=== PATIENT | male | born 1975 | race Caucasian/White ===

== ENCOUNTER 2017-01-24 13:34 | Emergency (ER) | payer OTHER, BC, MEDICAID ==
[2017-01-24 13:58] VITALS: BP 155/95
--- NOTE | 2017-01-24 14:09 | EDM.PDOC ---
ED HPI GENERAL MEDICAL PROBLEM - General Chief Complaint: Burn Stated Complaint: Left foot burn Time Seen by Provider: 01/24/17 13:55 Source of Information: Reports: Patient, RN Notes Reviewed History Limitations: Reports: No Limitations - History of Present Illness INITIAL COMMENTS - FREE TEXT/NARRATIVE: 41 year old male presents to the ED with complaints of burn to his left foot while at work. He dropped hot, boiling water onto his left foot. He was wearing a tennis shoe but the water soaked through. He has redness to all 5 toes. No blistering. No additional injury. Left Feet Pain Score (Numeric/FACES): 5 - Related Data Allergies Allergy/AdvReac Type Severity Reaction Status Date / Time No Known Allergies Allergy Verified 01/24/17 14:54 Home Meds: Home Meds . [No Known Home Meds] 01/24/17 [History] Review of Systems - Review of Systems Review Of Systems: See Below Constitutional: Reports: No Symptoms. Denies: Chills, Fever Skin: Reports: Burn(s) Neurological: Reports: No Symptoms. Denies: Numbness, Tingling ED EXAM, GENERAL - Physical Exam Exam: See Below Exam Limited By: No Limitations General Appearance: Alert, WD/WN, No Apparent Distress Respiratory/Chest: No Respiratory Distress, Lungs Clear Cardiovascular: Regular Rate, Rhythm Extremities: Normal Inspection, Normal Range of Motion, Non-Tender Skin Exam: Warm, Dry, Intact, Other (mild erythema to all 5 toes on the left foot. no blistering noted. CMS intact. Skin blanches. ) Course - Vital Signs Last Recorded V/S: Last Vital Signs Temp 98.1 F 01/24/17 13:55 Pulse 87 01/24/17 13:55 Resp 18 01/24/17 13:55 BP 155/95 H 01/24/17 13:55 Pulse Ox 96 01/24/17 13:55 Departure - Departure Time of Disposition: 14:08 Disposition: Home, Self-Care 01 Condition: Good Clinical Impression: Superficial burn of left foot - Discharge Information Instructions: Burn Care, [id number] Forms: ED Department Discharge Additional Instructions: Moist, cool compresses Antibiotic ointment to burn 2-3 times a day Tylenol or Ibuprofen as needed for pain Follow-up in clinic if you have any blistering or worsening symptoms.
== END 2017-01-24 15:02 | disposition home or self-care (01) ==
LOC: JD.ED 13:34
DX: T25.132A Burn of first degree of left toe(s) (nail), initial encounter (principal)
CPT/HCPCS: 99282; 99283

== ENCOUNTER 2017-12-06 13:30 | Emergency (ER) | payer BC, MEDICAID ==
[2017-12-06] MEDS ORDERED: Alum Hydrox/Mag Hydrox/Simeth 30 ML, Lidocaine 2% 15 ML PO STA ×2 (13:54)
--- NOTE | 2017-12-06 13:57 | EDM.PDOC ---
ED HPI GENERAL MEDICAL PROBLEM - General Chief Complaint: Chest Pain Stated Complaint: CHEST PAIN Time Seen by Provider: 12/06/17 13:39 Source of Information: Reports: Patient History Limitations: Reports: No Limitations - History of Present Illness INITIAL COMMENTS - FREE TEXT/NARRATIVE: The patient states that he developed central chest and epigastric abdominal pain Satnes evening, 12/04/2017. It is a twisting pain, not a discomfort. It does not radiate. It waxes and wanes. It becomes worse a few moments after taking a deep breath. He reports slight dyspnea, questionable nausea, diaphoresis today, but no sense of impending doom. It is similar to when he has trouble swallowing something. He has not tried any home remedies or over-the- counter medicines. The patient acknowledges that he is a daily drinker, drinking to excess 3 days a week. The patient does not have a PCP. - Related Data Allergies Allergy/AdvReac Type Severity Reaction Status Date / Time No Known Allergies Allergy Verified 01/24/17 14:54 Home Meds: Home Meds . [No Known Home Meds] 01/24/17 [History] Past Medical History Respiratory History: Reports: Asthma (as a child - suspected, not confirmed) - Infectious Disease History Infectious Disease History: Reports: Chicken Pox Social & Family History - Tobacco Use Smoking Status *Q: Former Smoker Tobacco Use Within Last Twelve Months: Cigars Packs/Tins Daily: 1 Month/Year Tobacco Last Used: Quit 1999 - Caffeine Use Caffeine Use: Reports: Coffee - Alcohol Use Alcohol Use History: Yes Days Per Week of Alcohol Use: 7 Number of Drinks Per Day: 4 Total Drinks Per Week: 28 Alcohol Use Frequency: Binges (Drinks excessively 3 days a week), Daily - Recreational Drug Use Recreational Drug Use: Yes Drug Use in Last 12 Months: No Recreational Drug Type: Reports: Marijuana/Hashish (last smoked early ) - Living Situation & Occupation Living situation: Reports: , with Significant Other (Girlfriend), with Family (4 kids) Occupation: Employed ([employer]) ED ROS GENERAL - Review of Systems Review Of Systems: ROS reveals no pertinent complaints other than HPI. ED EXAM, GENERAL - Physical Exam Exam: See Below Exam Limited By: No Limitations General Appearance: Alert, WD/WN, No Apparent Distress Eye Exam: Bilateral Eye: Normal Inspection Ears: Normal External Exam, Hearing Grossly Normal Nose: Normal Inspection, No Blood Throat/Mouth: Normal Inspection, Normal Lips, Normal Voice, No Airway Compromise Head: Atraumatic, Normocephalic Neck: Normal Inspection, Full Range of Motion Respiratory/Chest: No Respiratory Distress, Lungs Clear, Normal Breath Sounds, No Accessory Muscle Use, Chest Non-Tender Cardiovascular: Normal Peripheral Pulses, Regular Rate, Rhythm, No Edema, No Gallop, No JVD, No Murmur, No Rub Peripheral Pulses: 4+: Radial (L), Radial (R) GI/Abdominal: Normal Bowel Sounds, Soft, No Organomegaly, No Distention, No Abnormal Bruit, No Mass, Tender (Epigastrium only. Nontender elsewhere.) (Male) Exam: Deferred Rectal (Males) Exam: Prostate Normal, Deferred Back Exam: Normal Inspection, Full Range of Motion. No: CVA Tenderness (L), CVA Tenderness (R) Extremities: Normal Inspection, Normal Range of Motion, Non-Tender, Normal Capillary Refill, No Pedal Edema Neurological: Alert, Oriented, Normal Cognition, No Motor/Sensory Deficits Psychiatric: Normal Affect Skin Exam: Warm, Dry, Intact, Normal Color, No Rash EKG INTERPRETATION EKG Date: 12/06/17 Time: 13:36 Rhythm: NSR Rate (Beats/Min): 89 Dema: Normal P-Wave: Present QRS: Normal ST-T: Normal QT: Normal Comparison: NA - No Prior EKG Course - Orders/Labs/Meds Orders: Active Orders 24 hr Category Date Time Status EKG Documentation Completion [RC] STAT Care 12/06/17 13:39 Active Chest 2V [CR] Stat Exams 12/06/17 13:52 Taken Labs: Laboratory Tests 12/06/17 12/06/17 12/06/17 Range/Units 14:02 14:02 14:02 WBC 6.85 (4.23-9.07) K/mm3 RBC 4.93 (4.63-6.08) M/mm3 Hgb 15.7 (13.7-17.5) gm/L Hct 46.3 (40.1-51.0) % MCV 93.9 H (79.0-92.2) fl MCH 31.8 (25.7-32.2) pg MCHC 33.9 (32.2-35.5) g/dl RDW Std Deviation 42.1 (35.1-43.9) fL Plt Count 194 (163-337) K/mm3 MPV 9.5 (9.4-12.3) fl Neutrophils % (Manual) 82 H (40-60) % Band Neutrophils % 0 (0-10) % Lymphocytes % (Manual) 7 L (20-40) % Atypical Lymphs % 0 % Monocytes % (Manual) 9 (2-10) % Eosinophils % (Manual) 1 (0.8-7.0) % Basophils % (Manual) 1 (0.2-1.2) Platelet Estimate Adequate Plt Morphology Comment Normal RBC Morph Comment Normal PT 10.3 (9.5-12.1) SECONDS INR 0.94 APTT 28 (24-31) SECONDS D-Dimer, Quantitative 1.01 H (0.19-0.50) mg/L Sodium 134 L (136-145) mEq/L Potassium 4.0 (3.5-5.1) mEq/L Chloride 99 (98-107) mEq/L Carbon Dioxide 24 (21-32) mEq/L Anion Gap 15.0 (5-15) BUN 11 (7-18) mg/dL Creatinine 0.8 (0.7-1.3) mg/dL Est Cr Clr Drug Dosing TNP Estimated GFR (MDRD) > 60 (>60) mL/min BUN/Creatinine Ratio 13.8 L (14-18) Glucose 101 (74-106) mg/dL Calcium 8.7 (8.5-10.1) mg/dL Total Bilirubin 0.5 (0.2-1.0) mg/dL AST 34 (15-37) U/L ALT 45 (16-63) U/L Alkaline Phosphatase 56 (46-116) U/L Troponin I < 0.017 (0.00-0.056) ng/mL NT-Pro-B Natriuret Pep (0-125) pg/mL Total Protein 6.7 (6.4-8.2) g/dl Albumin 3.5 (3.4-5.0) g/dl Globulin 3.2 gm/dL Albumin/Globulin Ratio 1.1 (1-2) Lipase 163 (73-393) U/L 12/06/17 Range/Units 14:02 WBC (4.23-9.07) K/mm3 RBC (4.63-6.08) M/mm3 Hgb (13.7-17.5) gm/L Hct (40.1-51.0) % MCV (79.0-92.2) fl MCH (25.7-32.2) pg MCHC (32.2-35.5) g/dl RDW Std Deviation (35.1-43.9) fL Plt Count (163-337) K/mm3 MPV (9.4-12.3) fl Neutrophils % (Manual) (40-60) % Band Neutrophils % (0-10) % Lymphocytes % (Manual) (20-40) % Atypical Lymphs % % Monocytes % (Manual) (2-10) % Eosinophils % (Manual) (0.8-7.0) % Basophils % (Manual) (0.2-1.2) Platelet Estimate Plt Morphology Comment RBC Morph Comment PT (9.5-12.1) SECONDS INR APTT (24-31) SECONDS D-Dimer, Quantitative (0.19-0.50) mg/L Sodium (136-145) mEq/L Potassium (3.5-5.1) mEq/L Chloride (98-107) mEq/L Carbon Dioxide (21-32) mEq/L Anion Gap (5-15) BUN (7-18) mg/dL Creatinine (0.7-1.3) mg/dL Est Cr Clr Drug Dosing Estimated GFR (MDRD) (>60) mL/min BUN/Creatinine Ratio (14-18) Glucose (74-106) mg/dL Calcium (8.5-10.1) mg/dL Total Bilirubin (0.2-1.0) mg/dL AST (15-37) U/L ALT (16-63) U/L Alkaline Phosphatase (46-116) U/L Troponin I (0.00-0.056) ng/mL NT-Pro-B Natriuret Pep 11 (0-125) pg/mL Total Protein (6.4-8.2) g/dl Albumin (3.4-5.0) g/dl Globulin gm/dL Albumin/Globulin Ratio (1-2) Lipase (73-393) U/L Meds: Medications Discontinued Medications Generic Name Dose Route Start Last Admin Trade Name Freq PRN Reason Stop Dose Admin Al Hydroxide/Mg Hydroxide 30 0 ml 12/06/17 13:54 12/06/17 14:11 ml/ Lidocaine HCl 15 ml PO 12/06/17 13:55 45 ml ONETIME STA Administration - Re-Assessments/Exams Free Text/Narrative Re-Assessment/Exam: 12/06/17 14:22 2-view chest radiograph appears to be grossly normal. Cardiac silhouette is within normal limits. No pulmonary vascular congestion. No pleural effusions. No focal infiltrate. No pneumothorax. Formal read per the Radiologist pending. 12/06/17 15:07 Test results discussed with the patient. He states that the GI cocktail did not help with his discomfort. Nevertheless, the remainder of the patient's workup is negative, and I suspect that his epigastric and central chest pain is gastroenterologic in etiology. I am recommending that he start taking an over- the-counter H2 niranjan twice a day, which can be reduced to once a day if he has symptomatic relief. If his symptoms are not relieved with a twice a day H2 niranjan, I would like him to follow-up with Dr. Saenz, who can arrange for a PPI and EGD. [facility]. Departure - Departure Time of Disposition: 15:09 Disposition: Home, Self-Care 01 Condition: Good Clinical Impression: Alcohol abuse, Gastritis - Discharge Information Referrals: PCP,None [Primary Care Provider] - Maddie Saenz MD [Physician] - Forms: ED Department Discharge Additional Instructions: You were seen in the emergency room for 2 days of central chest and upper abdominal pain. Workup in the ER included blood work, a chest x-ray, and an ECG. Your entire workup was unremarkable, and does not explain the cause of your symptoms, however, based on your history and physical examination, your symptoms are MOST LIKELY due to gastritis. It is HIGHLY LIKELY that your gastritis is related to your alcohol consumption. It is very important that you stop drinking. We recommend that you follow-up at [facility] in order help you to do this: [address] [phone] You have been started on the antacid medicine Pepcid (famotidine). This is available [id number], and generics are just as good as the brand name. Take one tablet twice a day. If your symptoms improve on Pepcid twice a day, decrease the dosage to one tablet once a day. If your symptoms return, go back to one tablet twice a day. If you do not get symptomatic relief despite taking one tablet of Pepcid twice a day, please follow-up with Dr. Maddie Saenz in the clinic, who can arrange for further workup and treatment. If any other problems, please do not hesitate to return to the ER. - My Orders Last 24 Hours: My Active Orders 12/06/17 13:39 EKG Documentation Completion [RC] STAT 12/06/17 13:52 Chest 2V [CR] Stat - Assessment/Plan Last 24 Hours: My Active Orders 12/06/17 13:39 EKG Documentation Completion [RC] STAT 12/06/17 13:52 Chest 2V [CR] Stat
[2017-12-06] MEDS ORDERED: Famotidine 20 MG Tab PO ONE (15:07)
--- NOTE | 2017-12-06 15:18 | CR ---
Chest: Two views of the chest were obtained. Comparison: Prior chest x-ray of 06/06/16. Heart size and mediastinum are normal. Lungs are clear. Bony structures show slight degenerative change within the spine. Minimal anterior wedge deformities are seen within the mid to upper thoracic spine which are likely old. Impression: 1. Incidental findings. Nothing acute is seen. Diagnostic code #2
[2017-12-06 16:02] VITALS: BP 153/105
== END 2017-12-06 15:54 | disposition home or self-care (01) ==
LOC: JD.ED 13:30
DX: K29.20 Alcoholic gastritis without bleeding (principal); J45.909 Unspecified asthma, uncomplicated; Z87.891 Personal history of nicotine dependence
CPT/HCPCS: 36415; 71046; 80053; 83690; 83880; 84484; 85007; 85027; 85379; 85610; 85730; 93005; 99285; A9270; 93010; 99284-25

== ENCOUNTER 2019-07-03 10:43 | Emergency (ER) | payer OTHER, BC, MEDICAID ==
[2019-07-03] MEDS ORDERED: Lidocaine 1% 10 ML MDV INJECT ONE (11:08)
[2019-07-03 11:10] VITALS: BP 180/105; PULSE 89
--- NOTE | 2019-07-03 11:14 | EDM.PDOC ---
ED HPI GENERAL MEDICAL PROBLEM - General Chief Complaint: Laceration Stated Complaint: LEFT INDEX FINGER LACERATION Time Seen by Provider: 07/03/19 11:04 Source of Information: Reports: Patient History Limitations: Reports: No Limitations - History of Present Illness INITIAL COMMENTS - FREE TEXT/NARRATIVE: The patient presents with a laceration to the left 2nd finger. He was sharpening his knife and he slipped and cut his finger. He is not sure if his tetanus is up to date. He will check on that. He is right handed. Onset: Sudden Duration: Minutes: Location: Reports: Upper Extremity, Left (2nd finger) Quality: Reports: Sharp Severity: Mild Improves with: Reports: None Worsens with: Reports: None Associated Symptoms: Reports: No Other Symptoms Left Finger-Index Pain Score (Numeric/FACES): 1 - Related Data Allergies Allergy/AdvReac Type Severity Reaction Status Date / Time No Known Allergies Allergy Verified 12/06/17 15:59 Home Meds: Home Meds . [No Known Home Meds] 01/24/17 [History] Past Medical History Respiratory History: Reports: Asthma (as a child - suspected, not confirmed) - Infectious Disease History Infectious Disease History: Reports: Chicken Pox Social & Family History - Caffeine Use Caffeine Use: Reports: Coffee - Living Situation & Occupation Living situation: Reports: , with Significant Other (Girlfriend), with Family (4 kids) Occupation: Employed ([employer]) ED ROS GENERAL - Review of Systems Review Of Systems: See Below Constitutional: Reports: No Symptoms HEENT: Reports: No Symptoms Respiratory: Reports: No Symptoms Cardiovascular: Reports: No Symptoms Endocrine: Reports: No Symptoms GI/Abdominal: Reports: No Symptoms : Reports: No Symptoms Musculoskeletal: Reports: Other (1cm laceration to the left index finger) ED EXAM, SKIN/RASH Exam: See Below Exam Limited By: No Limitations General Appearance: Alert, No Apparent Distress Ears: Normal External Exam Nose: Normal Inspection Head: Atraumatic, Normocephalic Neck: Normal Inspection Respiratory/Chest: No Respiratory Distress Extremities: Other (1cm laceration to the left index finger over the PIP joint on the dorsal aspect. Good sensation and capillary refill and no tendon laceration.) ED SKIN PROCEDURES - Laceration/Wound Repair Left Digit - 2nd (Index) Appearance: Superficial, Linear Distal NVT: Neuro & Vascular Intact, No Tendon Injury Anesthetic Type: Local Local Anesthesia - Lidocaine (Xylocaine): 1% Plain Skin Prep: Saline Exploration/Debridement/Repair: Wound Explored, In a Bloodless Field, Explored to Base Closed with: Sutures Lac/Wound length In cm: 2 Suture Size: 4-0 # of Sutures: 2 Suture Type: Nylon, Interrupted, Simple Tetanus Status Addressed: No Complications: No Course - Vital Signs Last Recorded V/S: Last Vital Signs Temp 99.4 F 07/03/19 11:07 Pulse 89 07/03/19 11:07 Resp 20 07/03/19 11:07 BP 180/105 H 07/03/19 11:07 Pulse Ox 96 07/03/19 11:07 - Orders/Labs/Meds Meds: Medications Discontinued Medications Generic Name Dose Route Start Last Admin Trade Name Medhat PRN Reason Stop Dose Admin Lidocaine HCl 10 ml 07/03/19 11:08 07/03/19 11:29 Xylocaine 1% INJECT 07/03/19 11:09 10 ml ONETIME ONE Administration Departure - Departure Time of Disposition: 11:35 Disposition: Home, Self-Care 01 Condition: Good Clinical Impression: Laceration of left index finger Qualifiers: Encounter type: initial encounter Damage to nail status: without damage Foreign body presence: without foreign body Qualified Code(s): S61.211A - Laceration without foreign body of left index finger without damage to nail, initial encounter - Discharge Information *PRESCRIPTION DRUG MONITORING PROGRAM REVIEWED*: Not Applicable *COPY OF PRESCRIPTION DRUG MONITORING REPORT IN PATIENT AMY: Not Applicable Referrals: Valeria Hu PA-C [Primary Care Provider] - Forms: ED Department Discharge Additional Instructions: Soak your finger in warm soapy water 2 times per day and apply antibiotic ointment after. Have the sutures removed in 1 week. Look for any signs of infection such as redness, swelling, pain or drainage. If you see any of these signs please return, you may need oral antibiotics. Sepsis Event Note - Evaluation Sepsis Screening Result: No Definite Risk - Focused Exam Vital Signs: Vital Signs Temp Pulse Resp BP Pulse Ox 07/03/19 11:07 99.4 F 89 20 180/105 H 96 Date Exam was Performed: 07/03/19 Time Exam was Performed: 11:30
[2019-07-03] MEDS ORDERED: Diphtheria,Pertussis(Acell),Tetanus Vaccine 0.5 ML Syringe IM ONE (11:57)
== END 2019-07-03 11:45 | disposition home or self-care (01) ==
LOC: JD.ED 10:43
DX: S61.211A Laceration without foreign body of left index finger without damage to nail, initial encounter (principal); Z23 Encounter for immunization; J45.909 Unspecified asthma, uncomplicated; W26.0XXA Contact with knife, initial encounter
CPT/HCPCS: 12001; 90471; 90715; 99282; J2001

== ENCOUNTER 2019-10-17 12:32 | Emergency (ER) | payer OTHER, BC ==
[2019-10-17 13:15] VITALS: BP 160/100; PULSE 74
[2019-10-17] MEDS ORDERED: Lidocaine 1% 10 ML MDV INJECT ONE (13:31)
--- NOTE | 2019-10-17 13:36 | EDM.PDOC ---
ED HPI GENERAL MEDICAL PROBLEM - General Chief Complaint: Laceration Stated Complaint: RT INDEX FINGER LAC Time Seen by Provider: 10/17/19 13:12 Source of Information: Reports: Patient History Limitations: Reports: No Limitations - History of Present Illness INITIAL COMMENTS - FREE TEXT/NARRATIVE: Valentino Grider is a 43-year-old male who presents to the emergency room chief complaints of right index finger laceration. 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 Patient's reports that his immunizations are up-to-date. Is right-handed. Bleeding is controlled at this time. Denies any neck or back pain. Onset: Today, Sudden Onset Date: 10/17/19 Onset Time: 13:00 Location: Reports: Upper Extremity, Right Severity: Mild Improves with: Reports: Rest Worsens with: Reports: None Associated Symptoms: Reports: No Other Symptoms - Related Data Allergies Allergy/AdvReac Type Severity Reaction Status Date / Time No Known Allergies Allergy Verified 10/17/19 13:15 Home Meds: Home Meds . [No Known Home Meds] 01/24/17 [History] Past Medical History - Past Health History Medical/Surgical History: Denies Medical/Surgical History Respiratory History: Reports: Asthma - Infectious Disease History Infectious Disease History: Reports: Chicken Pox Social & Family History - Tobacco Use Smoking Status *Q: Current Every Day Smoker Years of Tobacco use: 20 Packs/Tins Daily: 0.5 - Caffeine Use Caffeine Use: Reports: Coffee - Recreational Drug Use Recreational Drug Use: No - Living Situation & Occupation Living situation: Reports: , with Significant Other (Girlfriend), with Family (4 kids) Occupation: Employed ([employer]) ED ROS GENERAL - Review of Systems Review Of Systems: Comprehensive ROS is negative, except as noted in HPI. Constitutional: Reports: No Symptoms HEENT: Reports: No Symptoms Respiratory: Reports: No Symptoms Cardiovascular: Reports: No Symptoms Endocrine: Reports: No Symptoms GI/Abdominal: Reports: No Symptoms : Reports: No Symptoms Musculoskeletal: Reports: No Symptoms Skin: Reports: Other (right Index finger laceration) Neurological: Reports: No Symptoms Psychiatric: Reports: No Symptoms Hematologic/Lymphatic: Reports: No Symptoms Immunologic: Reports: No Symptoms ED EXAM, SKIN/RASH Exam: See Below Exam Limited By: No Limitations General Appearance: Alert, WD/WN, No Apparent Distress Neck: Normal Inspection, Supple, Non-Tender, Full Range of Motion Peripheral Pulses: 4+: Radial (R) Extremities: Normal Range of Motion, No Pedal Edema, Normal Capillary Refill, Other (right index PIP 2 cm laceration, neurovascular intact, full ROM noted. ) Neurological: Alert, Oriented, CN II-XII Intact, Normal Cognition, Normal Gait, No Motor/Sensory Deficits Psychiatric: Normal Affect, Normal Mood Skin: Warm, Dry, Normal Color, No Rash, Other (right index finger laceration) Associated features: No: Swelling Lymphatic: No Adenopathy ED SKIN PROCEDURES - Laceration/Wound Repair Right Mid-Anterior Lateral Proximal Digit - 2nd (Index) Appearance: Clean Distal NVT: Neuro & Vascular Intact Anesthetic Type: Local Local Anesthesia - Lidocaine (Xylocaine): 1% Plain Local Anesthetic Volume: 1cc Skin Prep: Providone-Iodine (Betadine) Exploration/Debridement/Repair: Wound Explored, No Foreign Material Found Closed with: Sutures Lac/Wound length In cm: 2 Suture Size: 5-0 Suture Type: Prolene Suture Size: 5-0 # of Sutures: 3 Sterile Dressing Applied: Nurse Tetanus Status Addressed: Yes Complications: No Progress/Comments: patient tolerated procedure well. Course - Vital Signs Last Recorded V/S: Last Vital Signs Temp 97.6 F 10/17/19 13:12 Pulse 74 10/17/19 13:12 Resp 16 10/17/19 13:12 BP 160/100 H 10/17/19 13:12 Pulse Ox 98 10/17/19 13:12 - Orders/Labs/Meds Meds: Medications Discontinued Medications Generic Name Dose Route Start Last Admin Trade Name Freq PRN Reason Stop Dose Admin Lidocaine HCl 10 ml 10/17/19 13:31 Xylocaine 1% INJECT 10/17/19 13:32 ONETIME ONE - Re-Assessments/Exams Free Text/Narrative Re-Assessment/Exam: 10/17/19 13:40 Valentino Grider is a 43-year-old male with no underlying history who presents the emergency room chief complaints of right index finger laceration. 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 He received laceration repair his tetanus up-to-date. Do not feel that he needs x-rays at this time. I will discharge home with instructions to keep the wound clean and dry. Instructed patient to follow-up with his PCP in 7 to 10 days to have sutures removed. Patient verbalized understanding and discomfort plan for discharge. Patient is stable at time of discharge. Departure - Departure Time of Disposition: 14:22 Disposition: Home, Self-Care 01 Condition: Good Clinical Impression: Finger laceration Qualifiers: Encounter type: initial encounter Finger: index finger Damage to nail status: without damage Foreign body presence: without foreign body Laterality: right Qualified Code(s): S61.210A - Laceration without foreign body of right index finger without damage to nail, initial encounter - Discharge Information Instructions: Laceration Care, Adult, Sutured Wound Care, [id number] Referrals: Valeria Hu PA-C [Primary Care Provider] - Forms: ED Department Discharge Additional Instructions: You were seen and evaluated today for right index finger laceration. Keep the area clean and dry. Follow-up with your primary care doctor in 7 to 10 days to have the sutures removed. You may take Tylenol or Profen as needed for pain. Return to the emergency room for any new or acute worsening symptoms. Sepsis Event Note - Evaluation Sepsis Screening Result: No Definite Risk - Focused Exam Vital Signs: Vital Signs Temp Pulse Resp BP Pulse Ox 10/17/19 13:12 97.6 F 74 16 160/100 H 98 Date Exam was Performed: 10/17/19 Time Exam was Performed: 14:21
== END 2019-10-17 14:30 | disposition home or self-care (01) ==
LOC: JD.ED 12:32
DX: S61.210A Laceration without foreign body of right index finger without damage to nail, initial encounter (principal); F17.210 Nicotine dependence, cigarettes, uncomplicated; W26.8XXA Contact with other sharp object(s), not elsewhere classified, initial encounter; Y92.239 Unspecified place in hospital as the place of occurrence of the external cause; Y99.0 Civilian activity done for income or pay
CPT/HCPCS: 12001; 99282; J2001